=== PATIENT | female | born 1950 | race Caucasian/White ===

== ENCOUNTER 2018-02-15 08:30 | Outpatient (RCR) | payer MEDICARE, OTHER | END 2018-02-15 09:00 | disposition home or self-care (01) | LOC: PT 08:30 | DX: Z51.89 Encounter for other specified aftercare (principal); G57.92 Unspecified mononeuropathy of left lower limb; Z85.038 Personal history of other malignant neoplasm of large intestine; Z92.3 Personal history of irradiation; Z90.49 Acquired absence of other specified parts of digestive tract | CPT/HCPCS: G8978-GP; G8979-GP ==

== ENCOUNTER 2018-12-20 13:00 | Outpatient (RCR) | payer MEDICARE, OTHER | END 2018-12-20 13:30 | disposition still patient (30) | LOC: PT 13:00 | DX: M17.12 Unilateral primary osteoarthritis, left knee (principal); Z96.652 Presence of left artificial knee joint ==

== ENCOUNTER 2019-08-15 14:30 | Outpatient (RCR) | payer MEDICARE, OTHER | END 2019-10-10 | disposition still patient (30) | LOC: PT | DX: M25.511 Pain in right shoulder (principal); M25.512 Pain in left shoulder ==

== ENCOUNTER 2023-04-27 10:50 | Outpatient (RCR) | payer MEDICARE, OTHER | END 2023-05-02 | disposition home or self-care (01) | LOC: PT | DX: M70.61 Trochanteric bursitis, right hip (principal); M70.62 Trochanteric bursitis, left hip ==

== ENCOUNTER 2023-06-04 07:50 | Outpatient (RCR) | payer MEDICARE, OTHER | END 2023-07-02 | disposition home or self-care (01) | LOC: PT | DX: M70.61 Trochanteric bursitis, right hip (principal); M70.62 Trochanteric bursitis, left hip ==

== ENCOUNTER 2023-07-03 08:00 | Outpatient (RCR) | payer MEDICARE, OTHER | END 2023-08-02 | disposition home or self-care (01) | LOC: PT | DX: M70.61 Trochanteric bursitis, right hip (principal); M70.62 Trochanteric bursitis, left hip ==

== ENCOUNTER 2023-08-04 08:00 | Outpatient (RCR) | payer MEDICARE, OTHER | END 2023-09-02 | disposition home or self-care (01) | LOC: PT | DX: M70.61 Trochanteric bursitis, right hip (principal); M70.62 Trochanteric bursitis, left hip; M54.50 Low back pain, unspecified ==